=== PATIENT | male | born 1985 | race Caucasian/White ===

== ENCOUNTER 2018-06-18 21:09 | Emergency (ER) | payer BC ==
[~2018-06-18] VITALS: Ht 182.9 cm; Wt 115.7 kg
--- NOTE | 2018-06-18 21:20 | NUR ---
Pt came to emergency dept. complaining of redness and rash x 2 days after doing woodwork. Pt has redness/rashes on head, neck, trunk and extremeties. Pt AxO4. Respirations even and unlabored. Pt put on the monitor and pulse ox. Pending eval from ER .
[2018-06-18] MEDS ORDERED: diphenhydrAMINE HCL 50 MG CAPSULE PO ONE (22:00)
[2018-06-18] MEDS ORDERED: predniSONE 10 MG TABLET PO ONE (22:00)
[2018-06-18] MEDS ORDERED: diphenhydrAMINE HCL 50 MG CAPSULE ONE (22:02)
[2018-06-18] MEDS ORDERED: predniSONE 20 MG TABLET ONE ×2 (22:03→22:06)
[2018-06-18] MEDS ORDERED: IBUPROFEN 400 MG TABLET PO ONE (22:30)
[2018-06-18] MEDS ORDERED: ACETAMINOPHEN 325 MG TABLET PO ONE (22:30)
[2018-06-18] MEDS ORDERED: IBUPROFEN 400 MG TABLET ONE (22:41)
[2018-06-18] MEDS ORDERED: ACETAMINOPHEN 325 MG TABLET ONE (22:41)
--- NOTE | 2018-06-18 23:34 | NUR ---
rPatient is resting comfortably in bed with eyes closed. Easily aroused. VSS
--- NOTE | 2018-06-19 00:05 | NUR ---
RAJNI JEFFERY at bedside for Re-eval.
--- NOTE | 2018-06-19 00:10 | NUR ---
Butcher Fish at bedside for lab draw.
[2018-06-19 00:29] LABS: APPEARANCE,URINE CLEAR (CLEAR); BILIRUBIN,URINE NEGATIVE (NEGATIVE); BLOOD, URINE TRACE-INTA Ery/uL (NEGATIVE); COLOR,URINE YELLOW (YELLOW); KETONES,URINE NEGATIVE (NEGATIVE); LEUKOCYTE ESTERASE ,URINE NEGATIVE (NEGATIVE); NITRITE, URINE NEGATIVE (NEGATIVE); PROTEIN,URINE NEGATIVE (NEGATIVE); UGLUCOSE NEGATIVE (NEGATIVE); UROBILINOGEN,URINE 0.2 EU/dL (0.2)
[2018-06-19 00:38] LABS: CALCIUM, SERUM 8.4 mg/dL (8.5-10.1); CREATININE 1.3 mg/dL (0.6-1.3); POTASSIUM 3.5 mmol/L (3.5-5.1)
[2018-06-19 00:39] LABS: BASOPHILS % (AUTO) 0.6 % (0.0-2.0); EOSINOPHILS % (AUTO) 0.6 % (0.0-6.0); HEMATOCRIT 47 % (39-51); HEMOGLOBIN 16.2 g/dL (13.5-17.5); LYMPHOCYTES # (AUTO) 1.9 /CMM (0.8-4.8); LYMPHOCYTES % (AUTO) 33.7 % (20.0-44.0); MEAN CORPUSCULAR HGB CONC 35 g/dl (31.0-36.0); MEAN CORPUSCULAR VOLUME 90 fL (80-96); MONOCYTES # (AUTO) 0.6 /CMM (0.1-1.30); MONOCYTES % (AUTO) 10.4 % (2.0-12.0); NEUTROPHILS % (AUTO) 54.7 % (43.0-81.0); PLATELET COUNT (AUTO) 112 /CMM (150-450); RED BLOOD CELL COUNT(AUTO) 5.19 MIL/uL (4.5-6.0); WHITE BLOOD COUNT (AUTO) 5.5 K/uL (4.3-11.0)
[2018-06-19 00:44] LABS: BACTERIA,URINE None seen /HPF (None Seen); RBC,URINE 0-2 /HPF (0-2); SQUAMOUS EPITHELIAL CELL,UR Few /HPF (None Seen); WBC,URINE 0-2 /HPF (0-3)
[2018-06-19 00:45] LABS: ALBUMIN 3.9 g/dL (3.4-5.0); BILIRUBIN,TOTAL 0.6 mg/dL (0.2-1.0); TOTAL PROTEIN, SERUM 7.7 g/dL (6.4-8.2)
--- NOTE | 2018-06-19 00:59 | NUR ---
XRAY AT BEDSIDE.
--- NOTE | 2018-06-19 01:10 | NUR ---
Patient discharged to home in stable condition. Written and verbal after care instructions given. Patient verbalizes understanding of instruction. Pt ambulatory with steady gait.
[2018-06-19 01:19] VITALS: BP 128/86
== END 2018-06-19 01:19 | disposition home or self-care (01) ==
LOC: ER 21:14
DX: L25.9 Unspecified contact dermatitis, unspecified cause (principal); A49.9 Bacterial infection, unspecified; J45.909 Unspecified asthma, uncomplicated
CPT/HCPCS: 36415; 71045-TC; 80053-TC; 81000-TC; 85025-TC; 85730-TC; Q0163